=== PATIENT | female | born 1985 | race Caucasian/White ===

== ENCOUNTER 2025-05-20 10:36 | Day surgery (SDC) | payer BC, SELFPAY ==
[2025-05-20 10:58] VITALS: BP 128/72; PULSE 65; TEMP 36.2; O2SAT 100; BMI 20.3
[2025-05-20 11:17] LABS: Hematocrit 36.9 % (36.0-48.0); Hemoglobin 13.0 g/dL (12.0-16.0); Immature Granulocytes Abs Auto 0.02 10^3/uL (0.00-0.03); Immature Granulocytes Pct Auto 0.2 % (0.0-0.5); Lymphocytes Absolute Auto 1.6 10^3/uL (1.2-3.8); Mean Corpuscular HGB Conc 35.2 g/dL (29.9-35.2); Mean Corpuscular Hemoglobin 31.0 pg (26.7-34.0); Mean Corpuscular Volume 87.9 fL (81.0-99.0); Platelet Count 332 10^3/uL (150-450); Red Blood Count 4.20 10^6/uL (4.20-5.40); White Blood Count 8.4 10^3/uL (4.0-11.0)
--- NOTE | 2025-05-20 12:57 | PC.NURSE ---
Unable to get IV access at this time. Attempts made by Mayi Perez RN and Erlinda Ramires RN, each attempting twice. Patient had multiple pokes in the lab to get preop lab work as well. Patient spoke with Dr. Simmons and requested that she attempt to hydrate over the weekend and return on Friday for this procedure. Dr. Simmons was agreeable with this plan. Directed patient to hydrate with water and electrolyte drinks, and to stay away from caffeine products as this will further dehydrate her. Patient was placed on the schedule for Friday at [address] Simmons states that she will not need new lab work done that morning, as he will go off of today's results. I spoke with Angel in the blood and he reports that the patients Type and Screen will be good until [address] Simmons is ok with this.
== END 2025-05-20 13:06 | disposition home or self-care (01) ==
LOC: SURGOUT 10:39
PROVIDERS: PCP Family Medicine; Visit Provider Obstetrics & Gynecology
DX: O02.1 Missed abortion (principal); Z53.8 Procedure and treatment not carried out for other reasons
CPT/HCPCS: 59820; 36415; 84702; 85025; 86850; 86900; 86901

== ENCOUNTER 2025-05-23 06:13 | Day surgery (SDC) | payer BC, SELFPAY ==
[2025-05-23] VITALS (8 sets, daily range): BP systolic 105–119; BP diastolic 65–78; PULSE 68–91; TEMP 36.6; O2SAT 97–100; BMI 20.8
--- NOTE | 2025-05-23 08:07 | PM.ONB ---
Brief Operative Note Date of procedure: 05/23/25 Pre-op diagnosis general: missed first trimester Post-op diagnosis: same as pre-op Procedure: NAME OF PROCEDURE: [ ] Reema endometrial ablation with hysteroscopy. PROCEDURE: The patient was taken back to the OR where she was prepped and draped in the normal sterile fashion after being placed in the dorsal lithotomy position, after being placed under general anesthesia without difficulty.? A weighted speculum was placed into the vagina. The anterior lip was grasped with a single tooth tenaculum. The patient was then sounded to approximated 8cm. The patient?s cervix was gently dilated using hegardilators. The hysteroscope was passed through the cervix into the uterus where both ostia were seen. No gross evidence of polyps, fibroids or malignancy. The cervical length was noted to be 4 cm. The total cavity length is 4cm.? The Reema ablation apparatus was set to approximately 4cm in length. This was placed through the cervix and into the uterus. After the seal was tested, at that time the total ablation of 120 seconds was performed with the Reema withoutdifficulty. All instruments were removed from the vagina. Excellent hemostasis noted.? Sponge and lap count correct times 2.? Patient taken to recovery in stable condition. Anesthesia: MAC Surgeon: Alek Simmons Estimated blood loss (mL): 5 Pathology: other (poc) Condition: stable Disposition: PACU Urinary Catheter Management Urinary Catheter Management Urethral: Cath placed during this visit: no
--- NOTE | 2025-05-23 09:42 | PC.NURSE ---
PATIENT URINATED INK TINGED URINE. POST OP PROTOCOL FOR DISCHARGE
--- NOTE | 2025-05-25 08:01 | PM.ONB ---
Brief Operative Note Date of procedure: 05/25/25 Pre-op diagnosis general: first trimester missed Post-op diagnosis: same as pre-op Procedure: NAME OF PROCEDURE: [D&C suction ] PROCEDURE: The patient was taken back to the OR where she was given general anesthesia without difficulty. She was then placed in dorsal lithotomy position, prepped and draped in the normal sterile fashion. A weighted speculum was placed in the patient's vagina and the anterior lip of the cervix was identified and grasped with a single-tooth tenaculum. The patient was then gently dilated using Hegar dilators after we had sounded roughly to 12 cm. The suction curette was then tested. The suction curette was then placed in the patient's uterus and products of conception were removed using an 10-Wallisian suction curette. ?Excellent hemostasis was noted. The patient tolerated the procedure well. Sponge, lap, and needle counts were correct x 2. All instruments were then removed from the patient's vagina. The patient was taken to the Recovery Room in stable condition. ?? Anesthesia: MAC Surgeon: Alek Simmons Estimated blood loss (mL): 10 Pathology: other (poc) Condition: stable Disposition: PACU Urinary Catheter Management Urinary Catheter Management Urethral: Cath placed during this visit: no
== END 2025-05-23 10:15 | disposition home or self-care (01) ==
PROVIDERS: PCP Family Medicine; Visit Provider Obstetrics & Gynecology
PROC: (CPT 1965; principal; 2025-05-23 07:30)
DX: O02.1 Missed abortion (principal); Z90.49 Acquired absence of other specified parts of digestive tract
CPT/HCPCS: 59820; 88305; J1885; J2250; J2405; J2590; J2704; J3010